=== PATIENT | female | born 1960 ===

== ENCOUNTER 2016-11-15 20:17 | Emergency (ER) | payer OTHER ==
[2016-11-15] MEDS ORDERED: Sodium Chloride 0.9% 1,000 ML IV ONE (21:26)
--- NOTE | 2016-11-15 21:26 | C.PDOC ---
History Of Present Illness A 55 y/o female presents to the ER c/o epigastric pain for 3 weeks. Pt notes the pain as 4/10, that is non-radiating, and sometimes feel worse after eating. Pt denies fever, chills, nausea, vomiting, trauma, vaginal bleeding nor discharge, or any other complaints. Time Seen by Provider: 11/15/16 21:26 Chief Complaint (Nursing): Abdominal Pain History Per: Patient History/Exam Limitations: no limitations Onset/Duration Of Symptoms: Days Current Symptoms Are (Timing): Still Present Severity: Mild Pain Scale Rating Of: 4 Location Of Pain/Discomfort: Epigastric (Non-radiating) Quality Of Discomfort: "Pain" Associated Symptoms: denies: Nausea, Vomiting Exacerbating Factors: Food Recent travel outside of the [place]: No Additional History Per: Patient Abnormal Vaginal Bleeding: No Past Medical History Reviewed: Historical Data, Nursing Documentation, Vital Signs Vital Signs: Last Vital Signs Temp 98.4 F 11/15/16 20:22 Pulse 88 11/15/16 20:22 Resp 19 11/15/16 20:22 BP 100/68 11/15/16 20:22 Pulse Ox 97 11/15/16 23:41 - Medical History PMH: Gastritis Family History: States: Unknown Family Hx - Social History Hx Alcohol Use: No Hx Substance Use: No - Immunization History Hx Influenza Vaccination: No Hx Pneumococcal Vaccination: No Review Of Systems Except As Marked, All Systems Reviewed And Found Negative. Constitutional: Negative for: Fever, Chills, Other (Trauma) Gastrointestinal: Positive for: Abdominal Pain (Epigastric pain). Negative for : Nausea, Vomiting Genitourinary: Negative for: Vaginal Discharge, Vaginal Bleeding Physical Exam - Physical Exam Appears: Non-toxic, No Acute Distress Skin: Warm, Dry Head: Atraumatic Eye(s): bilateral: Normal Inspection Chest: Symmetrical Cardiovascular: Rhythm Regular, No Murmur Respiratory: No Rales, No Rhonchi, No Wheezing Gastrointestinal/Abdominal: Soft, Tenderness (Epigastric tenderness), No Guarding, No Rebound Neurological/Psych: Oriented x3, Normal Speech, Normal Cognition, Other (No focal deficit) Gait: Steady ED Course And Treatment - Laboratory Results Result Diagrams: 11/15/16 21:45 11/15/16 21:45 ECG: Interpreted By Me, Viewed By Me ECG Rhythm: Sinus Rhythm (78), Nonspecific Changes O2 Sat by Pulse Oximetry: 97 (RA) Pulse Ox Interpretation: Normal Reevaluation Time: 01:35 Reassessment Condition: Improved Disposition Counseled Patient/Family Regarding: Studies Performed, Diagnosis, Need For Followup, Rx Given - Disposition Referrals: [facility] [Outside] [facility] [Outside] Disposition: HOME/ ROUTINE Disposition Time: 21:26 Condition: FAIR Additional Instructions: Please return if symptoms recur Prescriptions: Dicyclomine [Dicyclomine HCl] 10 mg PO QID #20 cap Pantoprazole Sodium [Protonix] 20 mg PO DAILY #15 ect Instructions: Gastritis (DC), Gastroesophageal Reflux Disease (ED) Print Language: BOLIVIAN - Clinical Impression Clinical Impression: Abdominal pain, GERD (gastroesophageal reflux disease) - Scribe Statement The provider has reviewed the documentation as recorded by the Scribmechelle walden All medical record entries made by the Scribe were at my direction and personally dictated by me. I have reviewed the chart and agree that the record accurately reflects my personal performance of the history, physical exam, medical decision making, and the department course for this patient. I have also personally directed, reviewed, and agree with the discharge instructions and disposition.
[2016-11-15 21:42] LABS: RBC URINE < 1 /hpf (0-3); URINE BACTERIA RARE (<OCC); URINE BILIRUBIN NEGATIVE (NEGATIVE); URINE BLOOD 1+ (NEGATIVE); URINE COLOR Colorless (YELLOW); URINE GLUCOSE (UA) NORMAL (Normal); URINE KETONE NEGATIVE (NEGATIVE); URINE LEUKOCYTE ESTERASE NEG Leu/uL (Negative); URINE PROTEIN NEGATIVE (NEGATIVE); URINE UROBILINOGEN NORMAL mg/dL (0.2-1.0); WBC URINE 1 /hpf (0-5)
[2016-11-15 21:52] LABS: BASO % 0.5 % (0.0-2.0); EOS # 0.2 K/uL (0.0-0.7); EOS % 2.4 % (0.0-4.0); HEMATOCRIT 35.1 % (34.0-47.0); LYMPH # 3.1 K/uL (1.0-4.3); LYMPH % 36.1 % (20.0-40.0); MEAN CELL VOLUME 95.6 fL (81.0-99.0); MEAN CORPUSCULAR HEMOGLOBIN 31.8 pg (27.0-31.0); MEAN CORPUSCULAR HGB CONC 33.3 g/dL (33.0-37.0); MONO # 0.4 K/uL (0.0-0.8); MONO % 5.1 % (0.0-10.0); WHITE BLOOD COUNT 8.7 K/uL (4.8-10.8)
[2016-11-15] MEDS ORDERED: Sodium Chloride 0.9% 1,000 ML ONE (21:54)
[2016-11-15 21:57] LABS: CHLORIDE 101 mmol/L (98-107)
[2016-11-15 21:59] LABS: POTASSIUM 4.1 mmol/L (3.6-5.2); SODIUM 136 mmol/L (132-148)
[2016-11-15 22:01] LABS: ALB/GLOB RATIO 1.2 (1.0-2.1); ALKALINE PHOSPHATASE 76 U/L (38-126); ALT/SGPT 17 U/L (9-52); AST/SGOT 22 U/L (14-36); BILIRUBIN,TOTAL 0.6 mg/dL (0.2-1.3); BLOOD UREA NITROGEN 17 mg/dL (7-17); CARBON DIOXIDE 25 mmol/L (22-30); GFR AFRICAN-AMERICAN > 60; GLUCOSE,RANDOM 117 mg/dL (65-105); TOTAL PROTEIN 7.3 g/dL (6.3-8.3)
[2016-11-15 22:02] LABS: CALCIUM 8.9 mg/dl (8.6-10.4)
[2016-11-15] MEDS ORDERED: Iohexol 350mg/ml 100 ML ONE (22:18)
[2016-11-16 01:55] VITALS: BP 100/57; PULSE 64; RESP 20; TEMP 97.8; O2SAT 98
--- NOTE | 2016-11-16 08:59 | CT ---
PROCEDURE: CT Abdomen and Pelvis with intravenous contrast HISTORY: mid epigastric pain COMPARISON: None. TECHNIQUE: Multiple contiguous axial images were performed through the abdomen and pelvis with intravenous contrast. Subsequently, sagittal and coronal reformatted images were obtained. Radiation dose: Total exam DLP = 445 mGy-cm. This CT exam was performed using one or more of the following dose reduction techniques: Automated exposure control, adjustment of the mA and/or kV according to patient size, and/or use of iterative reconstruction technique. FINDINGS: LOWER THORAX: Trace left basilar atelectasis. LIVER: Unremarkable. No gross lesion or ductal dilatation. GALLBLADDER AND BILE DUCTS: Decompressed gallbladder. PANCREAS: Unremarkable. No gross lesion or ductal dilatation. SPLEEN: Diminutive. ADRENALS: Unremarkable. No mass. KIDNEYS AND URETERS: Unremarkable. No hydronephrosis. No solid mass. VASCULATURE: Unremarkable. No aortic aneurysm. BOWEL: Unremarkable. No obstruction. No gross mural thickening. Under distended left hemicolon. APPENDIX: Unremarkable. Normal appendix. PERITONEUM: Unremarkable. No free fluid. No free air. LYMPH NODES: Unremarkable. No enlarged lymph nodes. BLADDER: Unremarkable. REPRODUCTIVE: Unremarkable. BONES: No acute fracture. OTHER FINDINGS: Calcified atherosclerotic disease. IMPRESSION: Trace left basilar atelectasis. Otherwise negative acute. These findings were preliminarily reported at 11:30 p.m. on 11/15/[address] Joana Bianchi from [employer].
== END 2016-11-16 01:54 | disposition home or self-care (01) ==
LOC: C.ER 20:17
DX: K21.9 Gastro-esophageal reflux disease without esophagitis (principal)
CPT/HCPCS: 74177; 80053; 81001; 83690; 84703; 85025; 85610; 85730; 96361; 96374; 96375; 99284; C9113; J1885; J7040; Q9967

== ENCOUNTER 2017-09-27 01:33 | Emergency (ER) | payer SELFPAY ==
[2017-09-27 02:00] VITALS: PULSE 78
[2017-09-27] MEDS ORDERED: Sodium Chloride 0.9% 500 ML IV ONE ×2 (02:02→02:47)
[2017-09-27 02:28] LABS: BASO # 0.1 K/uL (0.0-0.2); BASO % 1.3 % (0.0-2.0); EOS # 0.3 K/uL (0.0-0.7); EOS % 3.8 % (0.0-4.0); HEMOGLOBIN 12.3 g/dL (11.0-16.0); LYMPH # 3.1 K/uL (1.0-4.3); LYMPH % 34.6 % (20.0-40.0); MEAN CORPUSCULAR HEMOGLOBIN 33.2 pg (27.0-31.0); MEAN CORPUSCULAR HGB CONC 34.9 g/dL (33.0-37.0); MEAN PLATELET VOLUME 9.1 fL (7.2-11.7); MONO # 0.6 K/uL (0.0-0.8); NEUT # 4.8 K/uL (1.8-7.0); NEUT % 53.3 % (50.0-75.0); NRBC % 0.1 % (0.0-2.0); RBC 3.7 Mil/uL (3.80-5.20); RED CELL DISTRIBUTION WIDTH 13.6 % (11.5-14.5); WHITE BLOOD COUNT 8.9 K/uL (4.8-10.8)
[2017-09-27 02:48] LABS: ALB/GLOB RATIO 1.1 (1.0-2.1); ALBUMIN 3.9 g/dL (3.5-5.0); ALT/SGPT 15 U/L (9-52); AST/SGOT 21 U/L (14-36); BLOOD UREA NITROGEN 16 mg/dL (7-17); CALCIUM 9.3 mg/dl (8.6-10.4); GFR AFRICAN-AMERICAN > 60; GFR NON-AFRICAN AMERICAN > 60; LIPASE 68 U/L (23-300)
[2017-09-27 03:04] LABS: SQUAMOUS EPITHIAL 4 /hpf (0-5); URINE BILIRUBIN NEGATIVE (NEGATIVE); URINE CLARITY Clear (Clear); URINE COLOR Straw (YELLOW); URINE GLUCOSE (UA) NORMAL (Normal); URINE LEUKOCYTE ESTERASE TRACE Leu/uL (Negative); URINE PROTEIN NEGATIVE (NEGATIVE); URINE UROBILINOGEN NORMAL mg/dL (0.2-1.0)
[2017-09-27 03:05] LABS: HCG,QUALITATIVE URINE NEGATIVE (NEGATIVE)
[2017-09-27 03:07] LABS: URINE BLOOD NEGATIVE (NEGATIVE)
[2017-09-27] MEDS ORDERED: Morphine 4 MG/ML VIAL IV ONE (03:30)
--- NOTE | 2017-09-27 03:40 | C.PDOC ---
History Of Present Illness 56 year old female presents to the ER with a complaint of epigastric pain and nausea for the past 4 days. Today pt experienced pain right mid back. Patient has a Hx of GERD on omeprazole but ran out. However, she reports no relief. Denies chest pain, SOB, diarrhea, vomiting, fever or UTI sx. Time Seen by Provider: 09/27/17 02:00 Chief Complaint (Nursing): Abdominal Pain History Per: Patient History/Exam Limitations: no limitations Onset/Duration Of Symptoms: Days Current Symptoms Are (Timing): Still Present Location Of Pain/Discomfort: Epigastric Radiation Of Pain To:: None Quality Of Discomfort: Unable To Describe Associated Symptoms: Nausea. denies: Fever, Vomiting, Chest Pain, Other (SOB) Exacerbating Factors: None Alleviating Factors: None Recent travel outside of the [place]: No Abnormal Vaginal Bleeding: No Past Medical History Reviewed: Historical Data, Nursing Documentation, Vital Signs Vital Signs: Last Vital Signs Temp 98.7 F 09/27/17 04:41 Pulse 78 09/27/17 04:41 Resp 18 09/27/17 04:41 BP 95/67 L 09/27/17 04:41 Pulse Ox 100 09/27/17 04:41 - Medical History PMH: Gastritis Family History: States: Unknown Family Hx - Social History Hx Alcohol Use: Yes Hx Substance Use: No - Immunization History Hx Influenza Vaccination: No Hx Pneumococcal Vaccination: No Review Of Systems Constitutional: Negative for: Fever Cardiovascular: Negative for: Chest Pain, Palpitations Respiratory: Negative for: Shortness of Breath Gastrointestinal: Positive for: Nausea, Abdominal Pain. Negative for: Vomiting Physical Exam - Physical Exam Appears: Non-toxic Skin: Normal Color, Warm, Dry Head: Atraumatic, Normacephalic Eye(s): bilateral: Normal Inspection Nose: Normal Oral Mucosa: Moist Chest: Symmetrical, No Tenderness Cardiovascular: Rhythm Regular Respiratory: Normal Breath Sounds, No Rales, No Rhonchi, No Wheezing Gastrointestinal/Abdominal: Bowel Sounds, Soft, Tenderness (Epigastric, no RUQ) , No Distention, No Guarding, No Rebound Back: No CVA Tenderness Neurological/Psych: Oriented x3, Normal Speech Gait: Steady ED Course And Treatment - Laboratory Results Result Diagrams: 09/27/17 02:26 09/27/17 02:26 ECG Interpretation: Normal O2 Sat by Pulse Oximetry: 98 (room air) Pulse Ox Interpretation: Normal Progress Note: Blood work and urinalysis ordered, results were negative. Morphine, pepcid, reglan, and IV fluids administered. On reevaluation, patient is resting comfortably in the ER in no acute distress, tolerating PO, vitals are stable, will discharge home with Rx and instructions to follow up with PMD or return if symptoms worsen. Pt understands and agrees at plan. Return precautions discussed and undrstood by pt Disposition Counseled Patient/Family Regarding: Diagnosis, Need For Followup - Disposition Referrals: [facility] at [facility] [Outside] Disposition: HOME/ ROUTINE Disposition Time: 04:22 Condition: STABLE Additional Instructions: Please take meds as prescribed No alem parks [facility] Regresa si peor Prescriptions: Aluminum Hydroxide/Magnesium H [Maalox 30 ml] 30 ml PO TID #100 bottle Ranitidine HCl [Zantac] 150 mg PO BID #30 tablet traMADol [Ultram] 50 mg PO TID #14 tab Instructions: Acute Abdomen (Belly Pain), Adult (DC) Forms: [employer] (Faroese), Work Excuse Print Language: FINNISH - Clinical Impression Clinical Impression: Abdominal pain - 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 - Scribe Statement The provider has reviewed the documentation as recorded by the Scribmechelle Banda All medical record entries made by the Magdielibmechelle were at my direction and personally dictated by me. I have reviewed the chart and agree that the record accurately reflects my personal performance of the history, physical exam, medical decision making, and the department course for this patient. I have also personally directed, reviewed, and agree with the discharge instructions and disposition.
[2017-09-27 04:42] VITALS: BP 95/67; RESP 18; TEMP 98.7
[2017-09-27 05:53] VITALS: O2SAT 98
== END 2017-09-27 04:42 | disposition home or self-care (01) ==
LOC: C.ER 01:33
DX: R10.13 Epigastric pain (principal)
CPT/HCPCS: 80053; 81001; 83690; 84703; 85025; 96374; 96375; 99283; J2270; J2765; J7040

== ENCOUNTER 2018-09-17 18:40 | Emergency (ER) | payer OTHER ==
[2018-09-17] MEDS ORDERED: Sodium Chloride 0.9% 500 ML IV ONE (19:42)
--- NOTE | 2018-09-17 19:54 | C.PDOC ---
History Of Present Illness 57 year old female presents to the emergency department with complaints of abdominal pain since Tuesday09-15-18. Patient states that she reportedly ate an egg, and has had epigastric pain since, associated with nausea and vomiting. Ankur forrest denies fever. Time Seen by Provider: 09/17/18 19:39 Chief Complaint (Nursing): Abdominal Pain History Per: Patient History/Exam Limitations: no limitations Onset/Duration Of Symptoms: Days (2) Current Symptoms Are (Timing): Still Present Location Of Pain/Discomfort: Epigastric Quality Of Discomfort: "Pain" Associated Symptoms: Nausea, Vomiting. denies: Fever Past Medical History Reviewed: Historical Data, Nursing Documentation, Vital Signs Vital Signs: Last Vital Signs Temp 98.3 F 09/17/18 18:58 Pulse 79 09/17/18 18:58 Resp 20 09/17/18 18:58 BP 135/80 09/17/18 18:58 Pulse Ox 99 09/17/18 18:58 - Medical History PMH: Gastritis Surgical History: No Surg Hx Family History: States: No Known Family Hx - Social History Hx Alcohol Use: Yes Hx Substance Use: No - Immunization History Hx Influenza Vaccination: No Hx Pneumococcal Vaccination: No Review Of Systems Except As Marked, All Systems Reviewed And Found Negative. Constitutional: Negative for: Fever, Chills Gastrointestinal: Positive for: Nausea, Vomiting, Abdominal Pain. Negative for: Diarrhea, Constipation Genitourinary: Negative for: Dysuria Physical Exam - Physical Exam Appears: Non-toxic, No Acute Distress Skin: Normal Color, Warm, Dry Head: Atraumatic, Normacephalic Eye(s): bilateral: Normal Inspection, PERRL, EOMI Nose: Normal Oral Mucosa: Moist Throat: Normal, No Erythema Neck: Normal, Supple Chest: Symmetrical, No Tenderness Cardiovascular: Rhythm Regular, No Murmur Respiratory: Normal Breath Sounds, No Rales, No Rhonchi, No Wheezing Gastrointestinal/Abdominal: Soft, Tenderness (epigastric), No Guarding, No Rebound Neurological/Psych: Oriented x3, Normal Speech, Normal Cognition ED Course And Treatment - Laboratory Results Result Diagrams: 09/17/18 20:30 09/17/18 20:30 O2 Sat by Pulse Oximetry: 99 (RA) Pulse Ox Interpretation: Normal Medical Decision Making Medical Decision Making: ro colitis gastroenteritis pancreatiis pud Plan: Chemistry Hematology Protonix 40mg IVP NaCl IV Fluids Zofran 4mg IVP HCG Qualitative Urine Urinalysis labs mild leukocytosis ct shows gastro. antibiotics given. pain improve.d abd soft no ttp. asking for dc. return precautions advise.d Disposition - Disposition Referrals: [facility] [Outside] [facility] [Outside] Placido Londono MD [Staff Provider] - Disposition: HOME/ ROUTINE Disposition Time: 22:30 Condition: STABLE Prescriptions: Ciprofloxacin HCl [Cipro] 500 mg PO BID #14 tab Famotidine [Pepcid] 20 mg PO DAILY #20 tab Metronidazole [Flagyl] 500 mg PO TID #21 tablet Instructions: Viral Gastroenteritis, Bacterial Gastroenteritis, Child (DC) Forms: [employer] (Cuban), Work Excuse - Clinical Impression Clinical Impression: Gastroenteritis - Scribe Statement The provider has reviewed the documentation as recorded by the Scribe (Edgardo East) Provider Attestation: All medical record entries made by the Scribe were at my direction and personally dictated by me. I have reviewed the chart and agree that the record accurately reflects my personal performance of the history, physical exam, medical decision making, and the department course for this patient. I have also personally directed, reviewed, and agree with the discharge instructions and disposition.
[2018-09-17 20:37] LABS: BASO # 0.1 K/uL (0.0-0.2); BASO % 0.7 % (0.0-2.0); EOS # 0.1 K/uL (0.0-0.7); EOS % 0.6 % (0.0-4.0); HEMOGLOBIN 12.7 g/dL (11.0-16.0); LYMPH # 2.8 K/uL (1.0-4.3); MEAN CELL VOLUME 96.9 fL (81.0-99.0); MEAN CORPUSCULAR HEMOGLOBIN 31.9 pg (27.0-31.0); MEAN CORPUSCULAR HGB CONC 32.9 g/dL (33.0-37.0); MONO # 0.4 K/uL (0.0-0.8); MONO % 3.3 % (0.0-10.0); NEUT # 8.7 K/uL (1.8-7.0); NEUT % 72.4 % (50.0-75.0); RBC 3.99 Mil/uL (3.80-5.20); RED CELL DISTRIBUTION WIDTH 13.3 % (11.5-14.5)
[2018-09-17 20:46] LABS: SQUAMOUS EPITHIAL < 1 /hpf (0-5); URINE AMORPHOUS SEDIMENT RARE /ul (<OCC); URINE BACTERIA RARE (<OCC); URINE BILIRUBIN NEGATIVE (NEGATIVE); URINE BLOOD 2+ (NEGATIVE); URINE CLARITY Hazy (Clear); URINE COLOR Yellow (YELLOW); URINE GLUCOSE (UA) NORMAL (Normal); URINE LEUKOCYTE ESTERASE NEG Leu/uL (Negative); URINE PROTEIN NEGATIVE (NEGATIVE); URINE UROBILINOGEN NORMAL mg/dL (0.2-1.0)
[2018-09-17 20:47] LABS: HCG,QUALITATIVE URINE NEGATIVE (NEGATIVE); INR 1.1; PROTHROMBIN TIME 11.5 SECONDS (9.7-12.2)
[2018-09-17 20:48] LABS: ALB/GLOB RATIO 1.4 (1.0-2.1); ALBUMIN 4.5 g/dL (3.5-5.0); ALT/SGPT 12 U/L (9-52); AST/SGOT 21 U/L (14-36); BILIRUBIN,DIRECT 0.2 mg/dL (0.0-0.4); BLOOD UREA NITROGEN 15 mg/dL (7-17); GFR NON-AFRICAN AMERICAN > 60; LIPASE 51 U/L (23-300)
[2018-09-17] MEDS ORDERED: Aluminum Hydroxide/Magnesium Hydroxide Susp (30 mL) PO STA (21:10)
[2018-09-17] MEDS ORDERED: Aluminum Hydroxide/Magnesium Hydroxide Susp (30 mL) ONE (21:26)
[2018-09-17] MEDS ORDERED: Iodixanol 320 MG/ML 100 ML BOTTLE IV ONE (21:45)
[2018-09-17 22:30] VITALS: BP 123/65; PULSE 77; RESP 18; TEMP 98.5
[2018-09-17 23:30] VITALS: O2SAT 99
--- NOTE | 2018-09-18 10:06 | CT ---
CT abdomen and pelvis HISTORY: Epigastric pain. COMPARISON: 11/15/2016 TECHNIQUE: Multiple contiguous axial images were performed through the abdomen and pelvis with the use of intravenous contrast. Subsequently, sagittal and coronal reformatted images were obtained. This CT exam was performed using one or more of the following dose reduction techniques: Automated exposure control, adjustment of the mA and/or kV according to patient size, and/or use of iterative reconstruction technique. Findings: Scattered areas of atelectasis at the lung bases. No pleural or pericardial effusion. Punctate calcification within the periphery of the left hepatic lobe measuring 3 millimeters on series 3, image 47. Contracted gallbladder. Diminutive spleen. Adrenal glands are preserved. Pancreas is preserved. Mild gastric thickening. Few distended and mildly thickened loops of small bowel seen within the left upper and mid abdomen which may represent an enteritis. Right kidney: Mild fullness of the right renal collecting system. Left Kidney: No gross calculi or hydronephrosis. Distended urinary bladder. Heterogeneous uterus and bilateral adnexa. Calcified phleboliths in the pelvis. Fecal retention in the colon. Underdistention and or mildly thickened descending and sigmoid colon. No findings to suggest acute appendicitis. Atherosclerotic calcification and plaque in the aorta. Few shotty para-aortic and inguinal lymph nodes. Few shotty mesenteric lymph nodes. Degenerative changes in the spine. Impression: 1. Few distended and mildly thickened loops of small bowel seen within the left upper and mid abdomen which may represent an enteritis. Clinical correlation. 2. Underdistention and or mildly thickened descending and sigmoid colon. Clinical correlation. 3. Mild gastric thickening. Clinical correlation. A preliminary report was generated at 10:17 p.m. on 09/17/[address] Heriberto Madrid from [employer]
== END 2018-09-17 23:32 | disposition home or self-care (01) ==
LOC: C.ER 18:40
DX: K52.9 Noninfective gastroenteritis and colitis, unspecified (principal)
CPT/HCPCS: 74177; 80053; 81001; 82248; 83690; 84703; 85025; 85610; 85730; 96361; 96374; 96375; 99285; C9113; J2405; J7040; Q9967